=== PATIENT | male | born 1965 | race Caucasian/White ===

== ENCOUNTER 2018-09-13 14:45 | Inpatient (IN) | payer MEDICAID ==
[~2018-09-13] VITALS: Ht 177.8 cm; Wt 90.9 kg
[2018-09-13] MEDS ORDERED: SOD CHLORIDE 0.9% 1,000 ML IV STA (14:50)
[2018-09-13] MEDS ORDERED: TAMS0.4C2 PO (16:15)
[2018-09-13] MEDS ORDERED: LANT3I SC (16:16)
[2018-09-13] MEDS ORDERED: LEVETIRACETAM 1000 MG (PMX) 100 ML IVPB ONE (16:30)
[2018-09-13] MEDS ORDERED: ONDANSETRON 4 MG INJ IV STA (18:11)
[2018-09-13] MEDS ORDERED: LORAZEPAM 2 MG INJ IV PRN (18:30)
[2018-09-13] MEDS ORDERED: ACETAMINOPHEN 325 MG TAB PO PRN ×2 (18:30)
[2018-09-13] MEDS ORDERED: ONDANSETRON 4 MG INJ IV PRN ×2 (18:30)
[2018-09-13] MEDS ORDERED: NACL 0.9% 3 ML SYG IV SCH (18:30)
[2018-09-13] MEDS ORDERED: HYDROCODONE/APAP (5/325) TAB PO PRN (18:30)
[2018-09-13] MEDS ORDERED: morphine 2 MG INJ IV PRN (18:30)
[2018-09-13] MEDS ORDERED: DOCUSATE SODIUM 100 MG CAP PO PRN (18:30)
--- NOTE | 2018-09-13 18:33 | HP ---
Date/Time of Note Date/Time of Note DATE: 09/13/18 TIME: 18:25 Assessment/Plan VTE Prophylaxis Pharmacological prophylaxis: LMWH Lines/Catheters IV C[facility]ter Type [facility]from [facility] Saline Lock Assessment/Plan Hospital Course 1. Acute metabolic/toxic encephalopathy Exact etiology is unclear at this time, patient has no evidence of sepsis, toxicology is negative, CT head shows no acute findings No history of seizures, unclear if patient had a seizure today Lactic acid and ammonia in a.m. [facility] for seizure prophylaxis Monitor on telemetry No indication for antibiotics 2. History of hypoglycemic coma in [place] 2 months ago Exact story about the episode is not fully clear at this time 3. Diabetes Patient is on Lantus 40 units nightly, will decrease to 30 nightly and will add mealtime insulin Sliding scale Follow-up on A1c 4. BPH Continue home Flomax Prophylaxis: Lovenox Result Diagram: 09/13/18 1509 09/13/18 1509 Results 24hrs Laboratory Tests Test 09/13/18 15:09 09/13/18 15:12 09/13/18 15:29 09/13/18 16:15 White Blood Count 7.0 Red Blood Count 5.38 Hemoglobin 14.4 Hematocrit 46.3 Mean Corpuscular 86.1 Volume Mean Corpuscular 26.8 L Hemoglobin Mean Corpuscular 31.1 L Hemoglobin Concent Red Cell 13.8 Distribution Width Platelet Count 233 Mean Platelet Volume 10.5 H Immature 0.600 H Granulocytes % Neutrophils % 49.2 Lymphocytes % 43.7 Monocytes % 4.7 Eosinophils % 1.1 Basophils % 0.7 Nucleated Red Blood 0.0 Cells % Immature 0.040 H Granulocytes # Neutrophils # 3.5 Lymphocytes # 3.1 H Monocytes # 0.3 Eosinophils # 0.1 Basophils # 0.1 Nucleated Red Blood 0.0 Cells # Prothrombin Time 12.5 Prothrombin Time 1.0 Ratio INR International 0.92 Normalized Ratio Sodium Level 141 Potassium Level 4.0 Chloride Level 108 Carbon Dioxide Level 12 L Anion Gap 21 H Blood Urea Nitrogen 14 Creatinine 0.90 Est Glomerular > 60 Filtrat Rate mL/min Glucose Level 159 Calcium Level 9.1 Total Bilirubin 0.3 Direct Bilirubin 0.00 Indirect Bilirubin 0.3 Aspartate Amino 57 H Transf (AST/SGOT) Alanine 65 Aminotransferase (AL T/SGPT) Alkaline Phosphatase 115 Troponin I < 0.012 Total Protein 7.8 Albumin 4.8 Globulin 3.00 Albumin/Globulin 1.60 Ratio Salicylates Level < 1.0 L Acetaminophen Level < 10.0 L Ethyl Alcohol Level < 10.0 H POC Venous Lactate 10.0 *H Bedside Glucose 151 Urine Color YELLOW Urine Clarity CLEAR Urine pH 5.0 Urine Specific 1.016 [place] Urine Ketones TRACE A Urine Nitrite NEGATIVE Urine Bilirubin NEGATIVE Urine Urobilinogen NEGATIVE Urine Leukocyte NEGATIVE Esterase Urine Microscopic 11 H RBC Urine Microscopic 0 WBC Urine Hemoglobin 2+ H Urine Glucose NEGATIVE Urine Total Protein 1+ H Urine Opiates Screen Negative Urine Barbiturates Negative Urine Amphetamines Negative Screen Urine Negative Benzodiazepines Screen Urine Cocaine Screen Negative Urine Cannabinoids Negative Test 09/13/18 17:30 Lactic Acid Level 1.5 HPI/ROS Admit Date/Time Admit Date/Time September 13, 2018 Hx of Present Illness Patient is a 53-year-old male with a history of hypertension, dyslipidemia, BPH, type 2 diabetes with previous hypoglycemic coma in [place] 2 months ago. Patient was reportedly on a bus with his daughter when he became altered, according to EMS patient woke up after receiving Narcan, in the ER patient was still altered and reported nausea but mentation did begin to improve. Workup including labs, UA, toxicology screen, CT head and chest x-ray were all normal. Patient is able to provide history at this time but still lethargic. Patient denies any drug abuse or history of seizures. Patient has no witnessed seizures reported. Patient's main complaint at this time is nausea. ROS Constitutional: no complaints, improved Eyes: no complaints ENT: no complaints Respiratory: no complaints Cardiovascular: no complaints Gastrointestinal: nausea Genitourinary: no complaints Musculoskeletal: no complaints Skin: no complaints Neurologic: no complaints Endocrine: no complaints Lymphatic: no complaints Psychological: no complaints, nl mood/affect Immunologic: no complaints PMH/Family/Social Past Medical History As per HPI Medications Current Medications Ondansetron HCl (Zofran Inj) 4 mg ER BRIDGE PRN IV NAUSEA/VOMITING; Start 09/13/18 at 18:30; Stop 09/14/18 at 18:29 Acetaminophen (Tylenol Tab) 650 mg ER BRIDGE PRN PO .MILD PAIN 1-3 OR TEMP; Start 09/13/18 at 18:30; Stop 09/14/18 at 18:29 Coded Allergies: No Known Allergies (Verified Allergy, Unknown, 09/13/18) Family History Significant Family History: no pertinent family hx Social History Alcohol Use: occasionally Smoking Status: Never smoker Drug Use: none Exam/Review of Systems Vital Signs Vitals Vital Signs Date Temp Pulse Resp B/P (MAP) Pulse Ox O2 O2 Flow FiO2 Time Delivery Rate 09/13/18 Nasal 2 16:22 Cannula 09/13/18 97.4 104 18 137/83 95 14:54 (101) Exam Constitutional: alert Psych: confusion Respiratory: clear to auscultation Cardiovascular: regular rate and rhythm Gastrointestinal: soft; No distended Musculoskeletal: nl extremities to inspection ANMOL KAUFMAN Sep 13, 2018 18:33
--- NOTE | 2018-09-13 18:35 | ERD ---
ER Documentation Chief Complaint Chief Complaint PT BIB AMBULANCE, ALTERED, GLF, FACIAL TRAUMA, ORIENTED X1 HPI This is a 53-year-old male with a past medical history of diabetes, a reported episode of diabetic, and possible stroke while abroad in [place] who is presenting today with altered mental status. The patient was reportedly fine on the bus with his young daughter when he suddenly became unresponsive. The patient reportedly fell forward and did hit his nose and face. He had a transient episode of epistaxis. The exact details of the event are unclear, but there was no reported shaking event. An ambulance was called. The patient was very confused and very slow to respond when paramedics arrived. The patient was reportedly given Narcan with a slightly improved mentation and nausea. Paramedics were concerned about the possibility of narcotic use. That said, there is no paraphernalia around the patient or in the patient's belongings. The patient has no focal deficits. He moves everything without difficulty. History and physical is limited secondary to altered mentation. The patient's history was obtained by the patient's daughter and the patient's brother. ROS All systems reviewed and are negative except as per history of present illness. Medications Home Meds Reported Medications Insulin Glargine* (Lantus*) 100 Unit/Ml Soln, 40 UNIT SC QHS, #1 VIAL 09/13/18 Tamsulosin Hcl* (Tamsulosin Hcl*) 0.4 Mg Cap.er.24h, 0.4 MG PO HS, CAP 09/13/18 Allergies Allergies: Coded Allergies: No Known Allergies (Verified Allergy, Unknown, 09/13/18) PMhx/Soc History of Surgery: No Anesthesia Reaction: No Hx Neurological Disorder: Yes (Possible previous CVA) Hx Respiratory Disorders: No Hx Cardiac Disorders: Yes (Insulin-dependent diabetes, previous diabetic,) Hx Psychiatric Problems: No Hx Miscellaneous Medical Probl: No Hx Alcohol Use: Yes (Occasional) Hx Substance Use: No Hx Tobacco Use: No Smoking Status: Never smoker FmHx Family History: diabetes Physical Exam Vitals Vital Signs Date Temp Pulse Resp B/P (MAP) Pulse Ox O2 O2 Flow FiO2 Time Delivery Rate 09/13/18 Nasal 2 16:22 Cannula 09/13/18 97.4 104 18 137/83 95 14:54 (101) Physical Exam Const: No apparent distress, well-developed, well-nourished Head: Normocephalic. Atraumatic. No molina sign. Eyes: Normal Conjunctiva. Extraocular movements intact. Pupils equal, round and reactive to light. No raccoon eyes. ENT: Normal External Ears and Mouth. Dried blood in the nares. No septal hematoma. No hemotympanum. Neck: Full range of motion. No meningismus. Resp: Clear to auscultation bilaterally, No wheezes, rales or rhonchi Cardio: Regular rate and rhythm. No murmurs, rubs or gallops Abd: Soft, non tender, non distended. Normal bowel sounds Skin: No petechiae or rashes Back: No midline tenderness. No CVA tenderness Ext: No cyanosis, or edema Neur: Lethargic but arousable. Oriented x1 to person. No facial droop. No obvious focal deficits. Moves all extremities spontaneously and to pain. Result Diagram: 09/13/18 1509 09/13/18 1509 Results 24 hrs Laboratory Tests Test 09/13/18 15:09 09/13/18 15:12 09/13/18 15:29 09/13/18 16:15 White Blood Count 7.0 10^3/ul Red Blood Count 5.38 10^6/ul Hemoglobin 14.4 g/dl Hematocrit 46.3 % Mean Corpuscular 86.1 fl Volume Mean Corpuscular 26.8 pg Hemoglobin Mean Corpuscular 31.1 g/dl Hemoglobin Concen t Red Cell 13.8 % Distribution Width Platelet Count 233 10^3/UL Mean Platelet 10.5 fl Volume Immature 0.600 % Granulocytes % Neutrophils % 49.2 % Lymphocytes % 43.7 % Monocytes % 4.7 % Eosinophils % 1.1 % Basophils % 0.7 % Nucleated Red 0.0 /100WBC Blood Cells % Immature 0.040 10^3/ul Granulocytes # Neutrophils # 3.5 10^3/ul Lymphocytes # 3.1 10^3/ul Monocytes # 0.3 10^3/ul Eosinophils # 0.1 10^3/ul Basophils # 0.1 10^3/ul Nucleated Red 0.0 10^3/ul Blood Cells # Prothrombin Time 12.5 Sec Prothrombin Time 1.0 Ratio INR International 0.92 Normalized Ratio Sodium Level 141 mmol/L Potassium Level 4.0 mmol/L Chloride Level 108 mmol/L Carbon Dioxide 12 mmol/L Level Anion Gap 21 Blood Urea 14 mg/dl Nitrogen Creatinine 0.90 mg/dl Est Glomerular > 60 mL/min Filtrat Rate mL/min Glucose Level 159 mg/dl Calcium Level 9.1 mg/dl Total Bilirubin 0.3 mg/dl Direct Bilirubin 0.00 mg/dl Indirect 0.3 mg/dl Bilirubin Aspartate Amino 57 IU/L Transf (AST/SGOT) Alanine 65 IU/L Aminotransferase (ALT/SGPT) Alkaline 115 IU/L Phosphatase Troponin I < 0.012 ng/ml Total Protein 7.8 g/dl Albumin 4.8 g/dl Globulin 3.00 g/dl Albumin/Globulin 1.60 Ratio Salicylates Level < 1.0 mg/dl Acetaminophen < 10.0 ug/ml Level Ethyl Alcohol < 10.0 mg/dl Level POC Venous 10.0 mmol/L Lactate Bedside Glucose 151 mg/dL Urine Color YELLOW Urine Clarity CLEAR Urine pH 5.0 Urine Specific 1.016 [place] Urine Ketones TRACE mg/dL Urine Nitrite NEGATIVE mg/dL Urine Bilirubin NEGATIVE mg/dL Urine NEGATIVE mg/dL Urobilinogen Urine Leukocyte NEGATIVE [place]/ul Esterase Urine Microscopic 11 /HPF RBC Urine Microscopic 0 /HPF WBC Urine Hemoglobin 2+ mg/dL Urine Glucose NEGATIVE mg/dL Urine Total 1+ mg/dl Protein Urine Opiates Negative Screen Urine Negative Barbiturates Urine Negative Amphetamines Screen Urine Negative Benzodiazepines Screen Urine Cocaine Negative Screen Urine Negative Cannabinoids Test 09/13/18 17:30 Lactic Acid Level 1.5 mmol/L Current Medications Medications Dose Sig/Blanca Start Time Status Last (Trade) Ordered Route PRN Stop Time Admin Dose Reason Admin Sodium 1,000 ml @ Q1H STAT 09/13/18 DC 09/13/18 Chloride 1,000 mls/hr IV 14:50 15:39 09/13/18 15:49 100 ml @ ONCE ONCE 09/13/18 DC 09/13/18 Levetiracetam 400 mls/hr IVPB 16:30 16:43 09/13/18 16:44 Ondansetron 4 mg ONCE STAT 09/13/18 DC HCl (Zofran IV 18:11 Inj) 09/13/18 18:17 Procedures/MDM MDM The patient's presentation warrants further investigation. Previous medical records, if available, were reviewed. LABS The patient's laboratory testing was obtained and reviewed. No emergent treatment was required unless described below. CBC: No E/o systemic infection or severe anemia or thrombocytopenia Chemistry: No E/o severe alkalosis or renal failure or liver disease or diabetic ketoacidosis. Anion gap metabolic acidosis, likely related to the lactic acidosis that is present. PT/INR: No E/o significant coagulopathy Lactate: Elevated, which I suspect to be related to a seizure event. I do not believe the patient is septic. The patient's repeat lactic acid was normal at 1.5. Troponin: No E/o acute ischemia Urine: No E/o acute infection. + Hematuria, not emergent Tox: No E/o alcohol abuse. No E/o illicit drug use. No E/o salicylate or acetaminophen use. EKG EKG read by me: Rate/Rhythm: Regular rate and rhythm at a rate of 91 beats per minute Intervals: Normal [place]: Normal Impression: No evidence of acute ischemia or arrhythmia IMAGING Imaging and Radiology interpretation reviewed. CXR FINDINGS: The trachea is midline. The cardiac silhouette and pulmonary vascularity are within normal limits. The lungs are clear. The costophrenic angles are sharp. IMPRESSION: No evidence of acute cardiopulmonary disease. Electronically viewed and signed by Physician Mandi on 09/13/2018 15:47 CT Head FINDINGS: The posterior fossa structures are unremarkable. The hilda, midbrain, and medulla appear to be with normal limits. There is no evidence of acute intracranial hemorrhage, infarct, or extra-axial fluid collection. No gross mass effect or midline shift. Cerebral sulci, cisternal spaces, and ventricles are within normal limits. The visualized paranasal sinuses are clear. The mastoid air cells are well-aerated. The calvarium is unremarkable. IMPRESSION: No evidence of acute intracranial hemorrhage, infarct, or extra- axial fluid collection. Unremarkable CT brain. If clinical symptoms persist, recommend follow-up MRI of the brain. Electronically viewed and signed by Physician Mandi on 09/13/2018 15:47 TREATMENT/DISPOSITION The patient presents with altered mentation and an episode of unresponsiveness. Given the results of the patient's blood work, I have very high suspicion for a seizure episode. According to the patient's brother, he has not had seizures in the past, but he does have an unclear critical history while he was in [place] recently that may have included a stroke and diabetic coma for which he may have been intubated. There is certainly a possibility for cerebral ischemia at that time which could increase his risk of seizures now. The patient's symptoms appeared to improve with Narcan per the paramedics, and so there was initially concern for substance abuse. However, the patient's toxicologic report is unremarkable, and I have decreased suspicion for substance abuse at this time. I do not see any evidence of an infectious etiology. Despite the patient's elevated lactic acid, I do not believe the patient is septic, and I do not feel the patient requires a septic workup. The patient is hyperglycemic, but there is no evidence of DKA. I do not suspect diabetic, today. This is not require emergent treatment. The patient may benefit from neurology evaluation and possible MRI imaging. This decision will be deferred to the admitting team. The patient was treated with IV fluids and Keppra in the emergency department. The patient did present with his daughter. Social work was consulted for this. We are able to get a hold of the patient's brother who came to the emergency department. He will bring the child home to her mother. ADMISSION At this time, I feel that the patient requires admission for further evaluation and management. The patient will be admitted to panel in accordance with the patient's insurance. The patient was accepted by Dr. Guerrier at 5:31 PM on September 13, 2018. Disclaimer: Inadvertent spelling and grammatical errors are likely due to EHR/dictation software use and do not reflect on the overall quality of patient care. Note that the electronic time recorded on this note does not necessarily reflect the actual time of the patient encounter. Departure Diagnosis: Primary Impression: Seizure Additional Impressions: Post-ictal confusion Lactic acidosis Hematuria Hematuria type: unspecified type Qualified Codes: R31.9 - Hematuria, unspecified Hyperglycemia Transient alteration of awareness Condition: Serious LIBORIO TEMPLETON MD Sep 13, 2018 18:33
[2018-09-13] MEDS ORDERED: GLUCAGON 1 MG INJ IM PRN (19:00)
[2018-09-13] MEDS ORDERED: GLUCOSE GEL 15 GRAM TUBE PO PRN ×2 (19:00)
[2018-09-13] MEDS ORDERED: GLUCOSE GEL 15 GRAM TUBE BUCCAL PRN (19:00)
[2018-09-13] MEDS ORDERED: DEXTROSE 50% 50 ML SYRINGE IV PRN ×2 (19:00)
[2018-09-13] MEDS: LEVETIRACETAM 500 MG (PMX) 100 ML IVPB SCH (20:31)
[2018-09-13] MEDS: SOD CHLORIDE 0.9% 1,000 ML IV SCH ×2 (20:32→22:41)
[2018-09-13] MEDS: INSULIN GLARGINE [LANTus] (100 UNITS/ML) SYG SC SCH (20:41)
[2018-09-13] MEDS: INSULIN ASPART [NOVOLOG] 3 ML PEN SC SCH (20:53)
[2018-09-13 22:10] VITALS: BP 105/58; PULSE 79; RESP 17
[2018-09-13 22:56] VITALS: Ht 177.8 cm; Wt 90.9 kg
[2018-09-13 23:41] VITALS: BP 87/52; PULSE 69; PULSE 71; RESP 18
[2018-09-14] VITALS (13 sets, daily range): BP systolic 87–111; BP diastolic 47–62; PULSE 64–94; RESP 17–20
[2018-09-14] MEDS: ACCU-CHEK XX SCH (01:46)
[2018-09-14] MEDS: INSULIN ASPART [NOVOLOG] 3 ML PEN SC SCH ×8 (08:00→21:00)
[2018-09-14] MEDS: ENOXAPARIN 40 MG/0.4 ML SYG SC SCH (09:02)
[2018-09-14] MEDS: LEVETIRACETAM 500 MG (PMX) 100 ML IVPB SCH (09:05)
--- NOTE | 2018-09-14 11:40 | PN ---
Date/Time of Note Date/Time of Note DATE: 09/14/18 TIME: 11:30 Assessment/Plan VTE Prophylaxis Risk score (from Nsg)>0 risk: 3 Pharmacological prophylaxis: LMWH Lines/Catheters IV Catheter Type (from Nrsg): Saline Lock Urinary Cath still in place: No Assessment/Plan Hospital Course 1. Acute metabolic/toxic encephalopathy Exact etiology is unclear at this time, patient has no evidence of sepsis, toxicology is negative, ammonia is normal, CT head shows no acute findings No history of seizures, unclear if patient had a seizure Neurology consultation obtained. [place] for seizure prophylaxis Monitor on telemetry No indication for antibiotics 2. History of hypoglycemic coma in [place] 2 months ago Exact story about the episode is not fully clear at this time 3. Diabetes Patient is on Lantus 40 units nightly, have decreased basal and have added mealtime insulin Sliding scale A1c at 6.7 4. BPH Continue home Flomax Prophylaxis: Lovenox DC planning: Follow-up on neurology recommendations Result Diagram: 09/14/18 0546 09/14/18 0547 Results 24hrs Laboratory Tests Test 09/13/18 15:09 09/13/18 15:12 09/13/18 15:29 09/13/18 16:15 White Blood Count 7.0 Red Blood Count 5.38 Hemoglobin 14.4 Hematocrit 46.3 Mean Corpuscular 86.1 Volume Mean Corpuscular 26.8 L Hemoglobin Mean Corpuscular 31.1 L Hemoglobin Concent Red Cell 13.8 Distribution Width Platelet Count 233 Mean Platelet Volume 10.5 H Immature 0.600 H Granulocytes % Neutrophils % 49.2 Lymphocytes % 43.7 Monocytes % 4.7 Eosinophils % 1.1 Basophils % 0.7 Nucleated Red Blood 0.0 Cells % Immature 0.040 H Granulocytes # Neutrophils # 3.5 Lymphocytes # 3.1 H Monocytes # 0.3 Eosinophils # 0.1 Basophils # 0.1 Nucleated Red Blood 0.0 Cells # Prothrombin Time 12.5 Prothrombin Time 1.0 Ratio INR International 0.92 Normalized Ratio Sodium Level 141 Potassium Level 4.0 Chloride Level 108 Carbon Dioxide Level 12 L Anion Gap 21 H Blood Urea Nitrogen 14 Creatinine 0.90 Est Glomerular > 60 Filtrat Rate mL/min Glucose Level 159 Calcium Level 9.1 Total Bilirubin 0.3 Direct Bilirubin 0.00 Indirect Bilirubin 0.3 Aspartate Amino 57 H Transf (AST/SGOT) Alanine 65 Aminotransferase (AL T/SGPT) Alkaline Phosphatase 115 Troponin I < 0.012 Total Protein 7.8 Albumin 4.8 Globulin 3.00 Albumin/Globulin 1.60 Ratio Salicylates Level < 1.0 L Acetaminophen Level < 10.0 L Ethyl Alcohol Level < 10.0 H POC Venous Lactate 10.0 *H Bedside Glucose 151 Urine Color YELLOW Urine Clarity CLEAR Urine pH 5.0 Urine Specific 1.016 [place] Urine Ketones TRACE A Urine Nitrite NEGATIVE Urine Bilirubin NEGATIVE Urine Urobilinogen NEGATIVE Urine Leukocyte NEGATIVE Esterase Urine Microscopic 11 H RBC Urine Microscopic 0 WBC Urine Hemoglobin 2+ H Urine Glucose NEGATIVE Urine Total Protein 1+ H Urine Opiates Screen Negative Urine Barbiturates Negative Urine Amphetamines Negative Screen Urine Negative Benzodiazepines Screen Urine Cocaine Screen Negative Urine Cannabinoids Negative Test 09/13/18 17:30 09/13/18 18:15 09/13/18 20:35 09/13/18 22:15 Lactic Acid Level 1.5 1.9 Bedside Glucose 215 299 H Ammonia < 9 L Test 09/14/18 01:36 09/14/18 05:46 09/14/18 05:47 09/14/18 08:11 Bedside Glucose 242 H 113 White Blood Count 7.7 Red Blood Count 4.77 Hemoglobin 12.6 L Hematocrit 39.4 L Mean Corpuscular 82.6 Volume Mean Corpuscular 26.4 L Hemoglobin Mean Corpuscular 32.0 Hemoglobin Concent Red Cell 14.1 Distribution Width Platelet Count 203 Mean Platelet Volume 10.2 Immature 0.400 Granulocytes % Neutrophils % 65.6 Lymphocytes % 25.8 Monocytes % 7.5 Eosinophils % 0.3 Basophils % 0.4 Nucleated Red Blood 0.0 Cells % Immature 0.030 Granulocytes # Neutrophils # 5.1 Lymphocytes # 2.0 Monocytes # 0.6 Eosinophils # 0.0 Basophils # 0.0 Nucleated Red Blood 0.0 Cells # Hemoglobin A1c 6.7 H Sodium Level 140 Potassium Level 4.1 Chloride Level 110 Carbon Dioxide Level 22 # Anion Gap 8 # Blood Urea Nitrogen 12 Creatinine 0.72 Est Glomerular > 60 Filtrat Rate mL/min Glucose Level 152 Calcium Level 8.4 Phosphorus Level 3.3 Magnesium Level 2.0 Total Bilirubin 0.5 Direct Bilirubin 0.00 Indirect Bilirubin 0.5 Aspartate Amino 28 # Transf (AST/SGOT) Alanine 48 Aminotransferase (AL T/SGPT) Alkaline Phosphatase 76 Total Protein 5.4 #L Albumin 3.2 #L Globulin 2.20 Albumin/Globulin 1.45 Ratio Triglycerides Level 96 Cholesterol Level 161 LDL Cholesterol, 100 Calculated HDL Cholesterol 42 Cholesterol/HDL 3.8 Ratio Free Thyroxine Index 1.66 Thyroxine (T4) 4.8 L Triiodothyronine 34.5 (T3) Uptake Subjective 24 Hr Interval Summary Constitutional: no complaints Exam/Review of Systems Exam Vitals Vital Signs Date Temp Pulse Resp B/P (MAP) Pulse Ox O2 O2 Flow FiO2 Time Delivery Rate 09/14/18 98.2 71 19 99/55 (70) 96 11:25 09/14/18 Nasal 2.0 08:00 Cannula Intake and Output 09/13/18 09/13/18 09/14/18 1515:00 23:00 07:00 IntakeIntake Total 1030 ml OutputOutput Total 1000 ml BalanceBalance 30 ml Constitutional: alert, oriented Respiratory: clear to auscultation Cardiovascular: regular rate and rhythm Gastrointestinal: soft; No distended Musculoskeletal: nl extremities to inspection Results Results 24hrs Laboratory Tests Test 09/13/18 15:09 09/13/18 15:12 09/13/18 15:29 09/13/18 16:15 White Blood Count 7.0 Red Blood Count 5.38 Hemoglobin 14.4 Hematocrit 46.3 Mean Corpuscular 86.1 Volume Mean Corpuscular 26.8 L Hemoglobin Mean Corpuscular 31.1 L Hemoglobin Concent Red Cell 13.8 Distribution Width Platelet Count 233 Mean Platelet Volume 10.5 H Immature 0.600 H Granulocytes % Neutrophils % 49.2 Lymphocytes % 43.7 Monocytes % 4.7 Eosinophils % 1.1 Basophils % 0.7 Nucleated Red Blood 0.0 Cells % Immature 0.040 H Granulocytes # Neutrophils # 3.5 Lymphocytes # 3.1 H Monocytes # 0.3 Eosinophils # 0.1 Basophils # 0.1 Nucleated Red Blood 0.0 Cells # Prothrombin Time 12.5 Prothrombin Time 1.0 Ratio INR International 0.92 Normalized Ratio Sodium Level 141 Potassium Level 4.0 Chloride Level 108 Carbon Dioxide Level 12 L Anion Gap 21 H Blood Urea Nitrogen 14 Creatinine 0.90 Est Glomerular > 60 Filtrat Rate mL/min Glucose Level 159 Calcium Level 9.1 Total Bilirubin 0.3 Direct Bilirubin 0.00 Indirect Bilirubin 0.3 Aspartate Amino 57 H Transf (AST/SGOT) Alanine 65 Aminotransferase (AL T/SGPT) Alkaline Phosphatase 115 Troponin I < 0.012 Total Protein 7.8 Albumin 4.8 Globulin 3.00 Albumin/Globulin 1.60 Ratio Salicylates Level < 1.0 L Acetaminophen Level < 10.0 L Ethyl Alcohol Level < 10.0 H POC Venous Lactate 10.0 *H Bedside Glucose 151 Urine Color YELLOW Urine Clarity CLEAR Urine pH 5.0 Urine Specific 1.016 [place] Urine Ketones TRACE A Urine Nitrite NEGATIVE Urine Bilirubin NEGATIVE Urine Urobilinogen NEGATIVE Urine Leukocyte NEGATIVE Esterase Urine Microscopic 11 H RBC Urine Microscopic 0 WBC Urine Hemoglobin 2+ H Urine Glucose NEGATIVE Urine Total Protein 1+ H Urine Opiates Screen Negative Urine Barbiturates Negative Urine Amphetamines Negative Screen Urine Negative Benzodiazepines Screen Urine Cocaine Screen Negative Urine Cannabinoids Negative Test 09/13/18 17:30 09/13/18 18:15 09/13/18 20:35 09/13/18 22:15 Lactic Acid Level 1.5 1.9 Bedside Glucose 215 299 H Ammonia < 9 L Test 09/14/18 01:36 09/14/18 05:46 09/14/18 05:47 09/14/18 08:11 Bedside Glucose 242 H 113 White Blood Count 7.7 Red Blood Count 4.77 Hemoglobin 12.6 L Hematocrit 39.4 L Mean Corpuscular 82.6 Volume Mean Corpuscular 26.4 L Hemoglobin Mean Corpuscular 32.0 Hemoglobin Concent Red Cell 14.1 Distribution Width Platelet Count 203 Mean Platelet Volume 10.2 Immature 0.400 Granulocytes % Neutrophils % 65.6 Lymphocytes % 25.8 Monocytes % 7.5 Eosinophils % 0.3 Basophils % 0.4 Nucleated Red Blood 0.0 Cells % Immature 0.030 Granulocytes # Neutrophils # 5.1 Lymphocytes # 2.0 Monocytes # 0.6 Eosinophils # 0.0 Basophils # 0.0 Nucleated Red Blood 0.0 Cells # Hemoglobin A1c 6.7 H Sodium Level 140 Potassium Level 4.1 Chloride Level 110 Carbon Dioxide Level 22 # Anion Gap 8 # Blood Urea Nitrogen 12 Creatinine 0.72 Est Glomerular > 60 Filtrat Rate mL/min Glucose Level 152 Calcium Level 8.4 Phosphorus Level 3.3 Magnesium Level 2.0 Total Bilirubin 0.5 Direct Bilirubin 0.00 Indirect Bilirubin 0.5 Aspartate Amino 28 # Transf (AST/SGOT) Alanine 48 Aminotransferase (AL T/SGPT) Alkaline Phosphatase 76 Total Protein 5.4 #L Albumin 3.2 #L Globulin 2.20 Albumin/Globulin 1.45 Ratio Triglycerides Level 96 Cholesterol Level 161 LDL Cholesterol, 100 Calculated HDL Cholesterol 42 Cholesterol/HDL 3.8 Ratio Free Thyroxine Index 1.66 Thyroxine (T4) 4.8 L Triiodothyronine 34.5 (T3) Uptake Medications Medication Current Medications Sodium Chloride 1,000 ml @ 75 mls/hr [id number] IV Last administered on 09/13/18at 22:41; Admin Dose 75 MLS/HR; Start 09/13/18 at 18:26 IV Flush (NS 3 ml) 3 ml PER PROTOCOL IV ; Start 09/13/18 at 18:30 Ondansetron HCl (Zofran Inj) 4 mg Q6H PRN IV NAUSEA/VOMITING Last administered on 09/13/18at 22:35; Admin Dose 4 MG; Start 09/13/18 at 18:30 Acetaminophen (Tylenol Tab) 650 mg Q6H PRN PO .PAIN 1-3 OR TEMP; Start 09/13/18 at 18:30 Acetaminophen/ Hydrocodone Bitart ([place] (5/325)) 1 tab Q6H PRN PO .MOD PAIN 4- 6; Start 09/13/18 at 18:30 Morphine Sulfate (morphine) 2 mg Q4H PRN IV .SEVERE PAIN 7-10; Start 09/13/18 at 18:30 Docusate Sodium (Colace) 100 mg Q12H PRN PO .CONSTIPATION; Start 09/13/18 at 18:30 Enoxaparin Sodium (Lovenox) 40 mg DAILY SC Last administered on 09/14/18at 09:02; Admin Dose 40 MG; Start 09/14/18 at 09:00 Levetiracetam 100 ml @ 400 mls/hr Q12 IVPB Last administered on 09/14/18 09:05; Admin Dose 400 MLS/HR; Start 09/13/18 at 21:00 Lorazepam (Ativan) 1 mg Q10MIN PRN IV SEIZURES; Start 09/13/18 at 18:30 Diagnostic Test (Pha) (Accu-Chek) 1 ea 02 XX Last administered on 09/14/18at 01:46; Admin Dose 1 EA; Start 09/14/18 at 02:00 Insulin Glargine (Lantus) 23 units DAILY@1999 SC Last administered on 09/13/18at 20:41; Admin Dose 23 UNITS; Start 09/13/18 at 20:00 Insulin Aspart (Novolog Insulin Pen) 5 unit WITH MEALS SC Last administered on 09/14/18at 09:00; Admin Dose 5 UNIT; Start 09/14/18 at 08:00 Insulin Aspart (Novolog Insulin Pen) NOVOLOG *MILD* ALGORITHM WITH MEALS BEDTIME SC Last administered on 09/13/18at 20:53; Admin Dose 4 UNIT; Start 09/13/18 at 21:00 Miscellaneous Information 1 ea NOTE XX ; Start 09/13/18 at 19:00 Glucose (Glutose) 15 gm Q15M PRN PO DECREASED GLUCOSE; Start 09/13/18 at 19:00 Glucose (Glutose) 22.5 gm Q15M PRN PO DECREASED GLUCOSE; Start 09/13/18 at 19:00 Dextrose (D50w Syringe) 25 ml Q15M PRN IV DECREASED GLUCOSE; Start 09/13/18 at 19:00 Dextrose (D50w Syringe) 50 ml Q15M PRN IV DECREASED GLUCOSE; Start 09/13/18 at 19:00 Glucagon (Glucagen) 1 mg Q15M PRN IM DECREASED GLUCOSE; Start 09/13/18 at 19:00 Glucose (Glutose) 15 gm Q15M PRN BUCCAL DECREASED GLUCOSE; Start 09/13/18 at 19:00 ANMOL KAUFMAN Sep 14, 2018 11:40
--- NOTE | 2018-09-14 12:16 | CONS ---
Assessment/Plan Assessment/Plan Hospital Course 53 yo M with hx of CVA and other cerebrovascular risk factors who presents for evaluation following a transient loss of consciousness w/ ? generalized shaking?... for which neurology is consulted. The clinical picture is most concerning for seizure. Syncope is additionally considered. CTH is unrevealing. P: Clarify details of event w/ witness when able MRI brain without contrast for further characterization EEG to evaluate for epileptiform activity. Orthostatics Hold Keppra for now, pending the above Ativan IV PRN prolonged seizure or cluster Other medical management per primary Will follow clinically Consultation Date/Type/Reason Admit Date/Time September 13, 2018 Type of Consult Neurology Reason for Consultation ams Requesting Provider: ANMOL KAUFMAN Date/Time of Note DATE: 09/14/18 TIME: 12:16 Hx of Present Illness The pt is currently a limited historian. He endorses lethargy, some confusion, and a sore tongue. Denies headache, weakness, changes in vision or speech, paresthesias. Denies a hx of seizures It is additionally elsewhere noted: Hx of Present Illness Patient is a 53-year-old male with a history of hypertension, dyslipidemia, BPH, type 2 diabetes with previous hypoglycemic coma in [place] 2 months ago. Rory medley was reportedly on a bus with his daughter when he became altered, according to EMS patient woke up after receiving Narcan, in the ER patient was still altered and reported nausea but mentation did begin to improve. Workup including labs, UA, toxicology screen, CT head and chest x-ray were all normal. Patient is able to provide history at this time but still lethargic. Patient denies any drug abuse or history of seizures. Patient has no witnessed seizures reported. Patient's main complaint at this time is nausea. negative unless noted otherwise in HPI Exam/Review of Systems Exam Vitals Vital Signs Date Temp Pulse Resp B/P (MAP) Pulse Ox O2 O2 Flow FiO2 Time Delivery Rate 09/14/18 98.2 71 19 99/55 (70) 96 11:25 09/14/18 Nasal 2.0 08:00 Cannula Intake and Output 09/13/18 09/13/18 09/14/18 1515:00 23:00 07:00 IntakeIntake Total 1030 ml OutputOutput Total 1000 ml BalanceBalance 30 ml Exam PE: Gen Appearance: No Apparent Distress HEENT: Normocephalic Cardiovascular: Regular rate Lungs: Clear bilaterally Abdomen: Soft Extremities: Dry NE: The patient was alert and oriented. Language was dysarthric. Fund of knowledge was normal. Pupils were equal and reactive to light. There was no afferent pupillary defect. Visual mooney were normal. Funduscopic examination was limited. Extra-ocular movements were full. Ptosis was absent. There was no nystagmus. Facial sensation was normal. Face was symmetric with normal strength. Hearing was intact. Palate movements were normal. Neck strength was normal. There was normal tongue bulk with blue/purple bruising on the L side; there was normal speed of movement. Tone was normal. Muscle bulk was normal. I did not see fasciculations. Arms were strong; legs were strong to confrontation, though asymmetric and pain-limited in the L. Vibration sensation was normal. Temperature and pinprick sensation was normal. Rapid alternating movements were normal. There was no dysmetria. There was no intention tremor. Gait was unsteady, favoring the R leg. Arm and leg reflexes were 2+ and symmetric. Perez's sign was absent. Plantar responses were flexor. Results Result Diagram: 09/14/18 0546 09/14/18 0547 Results 24hrs Laboratory Tests Test 09/13/18 15:09 09/13/18 15:12 09/13/18 15:29 09/13/18 16:15 White Blood Count 7.0 Red Blood Count 5.38 Hemoglobin 14.4 Hematocrit 46.3 Mean Corpuscular 86.1 Volume Mean Corpuscular 26.8 L Hemoglobin Mean Corpuscular 31.1 L Hemoglobin Concent Red Cell 13.8 Distribution Width Platelet Count 233 Mean Platelet Volume 10.5 H Immature 0.600 H Granulocytes % Neutrophils % 49.2 Lymphocytes % 43.7 Monocytes % 4.7 Eosinophils % 1.1 Basophils % 0.7 Nucleated Red Blood 0.0 Cells % Immature 0.040 H Granulocytes # Neutrophils # 3.5 Lymphocytes # 3.1 H Monocytes # 0.3 Eosinophils # 0.1 Basophils # 0.1 Nucleated Red Blood 0.0 Cells # Prothrombin Time 12.5 Prothrombin Time 1.0 Ratio INR International 0.92 Normalized Ratio Sodium Level 141 Potassium Level 4.0 Chloride Level 108 Carbon Dioxide Level 12 L Anion Gap 21 H Blood Urea Nitrogen 14 Creatinine 0.90 Est Glomerular > 60 Filtrat Rate mL/min Glucose Level 159 Calcium Level 9.1 Total Bilirubin 0.3 Direct Bilirubin 0.00 Indirect Bilirubin 0.3 Aspartate Amino 57 H Transf (AST/SGOT) Alanine 65 Aminotransferase (AL T/SGPT) Alkaline Phosphatase 115 Troponin I < 0.012 Total Protein 7.8 Albumin 4.8 Globulin 3.00 Albumin/Globulin 1.60 Ratio Salicylates Level < 1.0 L Acetaminophen Level < 10.0 L Ethyl Alcohol Level < 10.0 H POC Venous Lactate 10.0 *H Bedside Glucose 151 Urine Color YELLOW Urine Clarity CLEAR Urine pH 5.0 Urine Specific 1.016 [place] Urine Ketones TRACE A Urine Nitrite NEGATIVE Urine Bilirubin NEGATIVE Urine Urobilinogen NEGATIVE Urine Leukocyte NEGATIVE Esterase Urine Microscopic 11 H RBC Urine Microscopic 0 WBC Urine Hemoglobin 2+ H Urine Glucose NEGATIVE Urine Total Protein 1+ H Urine Opiates Screen Negative Urine Barbiturates Negative Urine Amphetamines Negative Screen Urine Negative Benzodiazepines Screen Urine Cocaine Screen Negative Urine Cannabinoids Negative Test 09/13/18 17:30 09/13/18 18:15 09/13/18 20:35 09/13/18 22:15 Lactic Acid Level 1.5 1.9 Bedside Glucose 215 299 H Ammonia < 9 L Test 09/14/18 01:36 09/14/18 05:46 09/14/18 05:47 09/14/18 08:11 Bedside Glucose 242 H 113 White Blood Count 7.7 Red Blood Count 4.77 Hemoglobin 12.6 L Hematocrit 39.4 L Mean Corpuscular 82.6 Volume Mean Corpuscular 26.4 L Hemoglobin Mean Corpuscular 32.0 Hemoglobin Concent Red Cell 14.1 Distribution Width Platelet Count 203 Mean Platelet Volume 10.2 Immature 0.400 Granulocytes % Neutrophils % 65.6 Lymphocytes % 25.8 Monocytes % 7.5 Eosinophils % 0.3 Basophils % 0.4 Nucleated Red Blood 0.0 Cells % Immature 0.030 Granulocytes # Neutrophils # 5.1 Lymphocytes # 2.0 Monocytes # 0.6 Eosinophils # 0.0 Basophils # 0.0 Nucleated Red Blood 0.0 Cells # Hemoglobin A1c 6.7 H Sodium Level 140 Potassium Level 4.1 Chloride Level 110 Carbon Dioxide Level 22 # Anion Gap 8 # Blood Urea Nitrogen 12 Creatinine 0.72 Est Glomerular > 60 Filtrat Rate mL/min Glucose Level 152 Calcium Level 8.4 Phosphorus Level 3.3 Magnesium Level 2.0 Total Bilirubin 0.5 Direct Bilirubin 0.00 Indirect Bilirubin 0.5 Aspartate Amino 28 # Transf (AST/SGOT) Alanine 48 Aminotransferase (AL T/SGPT) Alkaline Phosphatase 76 Total Protein 5.4 #L Albumin 3.2 #L Globulin 2.20 Albumin/Globulin 1.45 Ratio Triglycerides Level 96 Cholesterol Level 161 LDL Cholesterol, 100 Calculated HDL Cholesterol 42 Cholesterol/HDL 3.8 Ratio Free Thyroxine Index 1.66 Thyroxine (T4) 4.8 L Triiodothyronine 34.5 (T3) Uptake Test 09/14/18 11:41 Bedside Glucose 134 Medications Medication Current Medications Sodium Chloride 1,000 ml @ 75 mls/hr [id number] IV Last administered on 09/13/18at 22:41; Admin Dose 75 MLS/HR; Start 09/13/18 at 18:26 IV Flush (NS 3 ml) 3 ml PER PROTOCOL IV ; Start 09/13/18 at 18:30 Ondansetron HCl (Zofran Inj) 4 mg Q6H PRN IV NAUSEA/VOMITING Last administered on 09/13/18at 22:35; Admin Dose 4 MG; Start 09/13/18 at 18:30 Acetaminophen (Tylenol Tab) 650 mg Q6H PRN PO .PAIN 1-3 OR TEMP; Start 09/13/18 at 18:30 Acetaminophen/ Hydrocodone Bitart ([place] (5/325)) 1 tab Q6H PRN PO .MOD PAIN 4- 6; Start 09/13/18 at 18:30 Morphine Sulfate (morphine) 2 mg Q4H PRN IV .SEVERE PAIN 7-10; Start 09/13/18 at 18:30 Docusate Sodium (Colace) 100 mg Q12H PRN PO .CONSTIPATION; Start 09/13/18 at 18:30 Enoxaparin Sodium (Lovenox) 40 mg DAILY SC Last administered on 09/14/18at 09:02; Admin Dose 40 MG; Start 09/14/18 at 09:00 Levetiracetam 100 ml @ 400 mls/hr Q12 IVPB Last administered on 09/14/18at 09:05; Admin Dose 400 MLS/HR; Start 09/13/18 at 21:00 Lorazepam (Ativan) 1 mg Q10MIN PRN IV SEIZURES; Start 09/13/18 at 18:30 Diagnostic Test (Pha) (Accu-Chek) 1 ea 02 XX Last administered on 09/14/18at 01:46; Admin Dose 1 EA; Start 09/14/18 at 02:00 Insulin Glargine (Lantus) 23 units DAILY@2000 SC Last administered on 09/13/18at 20:41; Admin Dose 23 UNITS; Start 09/13/18 at 20:00 Insulin Aspart (Novolog Insulin Pen) 5 unit WITH MEALS SC Last administered on 09/14/18at 11:56; Admin Dose 5 UNIT; Start 09/14/18 at 08:00 Insulin Aspart (Novolog Insulin Pen) NOVOLOG *MILD* ALGORITHM WITH MEALS BEDTIME SC Last administered on 09/13/18at 20:53; Admin Dose 4 UNIT; Start 09/13/18 at 21:00 Miscellaneous Information 1 ea NOTE XX ; Start 09/13/18 at 19:00 Glucose (Glutose) 15 gm Q15M PRN PO DECREASED GLUCOSE; Start 09/13/18 at 19:00 Glucose (Glutose) 22.5 gm Q15M PRN PO DECREASED GLUCOSE; Start 09/13/18 at 19:00 Dextrose (D50w Syringe) 25 ml Q15M PRN IV DECREASED GLUCOSE; Start 09/13/18 at 19:00 Dextrose (D50w Syringe) 50 ml Q15M PRN IV DECREASED GLUCOSE; Start 09/13/18 at 19:00 Glucagon (Glucagen) 1 mg Q15M PRN IM DECREASED GLUCOSE; Start 09/13/18 at 19:00 Glucose (Glutose) 15 gm Q15M PRN BUCCAL DECREASED GLUCOSE; Start 09/13/18 at 19:00 Past Medical History reviewed Home Meds Reported Medications Insulin Glargine* (Lantus*) 100 Unit/Ml Soln, 40 UNIT SC QHS, #1 VIAL 09/13/18 Tamsulosin Hcl* (Tamsulosin Hcl*) 0.4 Mg Cap.er.24h, 0.4 MG PO HS, CAP 09/13/18 Medications Current Medications Sodium Chloride 1,000 ml @ 75 mls/hr [id number] IV Last administered on 09/13/18at 22:41; Admin Dose 75 MLS/HR; Start 09/13/18 at 18:26 IV Flush (NS 3 ml) 3 ml PER PROTOCOL IV ; Start 09/13/18 at 18:30 Ondansetron HCl (Zofran Inj) 4 mg Q6H PRN IV NAUSEA/VOMITING Last administered on 09/13/18at 22:35; Admin Dose 4 MG; Start 09/13/18 at 18:30 Acetaminophen (Tylenol Tab) 650 mg Q6H PRN PO .PAIN 1-3 OR TEMP; Start 09/13/18 at 18:30 Acetaminophen/ Hydrocodone Bitart ([place] (5/325)) 1 tab Q6H PRN PO .MOD PAIN 4- 6; Start 09/13/18 at 18:30 Morphine Sulfate (morphine) 2 mg Q4H PRN IV .SEVERE PAIN 7-10; Start 09/13/18 at 18:30 Docusate Sodium (Colace) 100 mg Q12H PRN PO .CONSTIPATION; Start 09/13/18 at 18:30 Enoxaparin Sodium (Lovenox) 40 mg DAILY SC Last administered on 09/14/18at 09:02; Admin Dose 40 MG; Start 09/14/18 at 09:00 Levetiracetam 100 ml @ 400 mls/hr Q12 IVPB Last administered on 09/14/18at 09:05; Admin Dose 400 MLS/HR; Start 09/13/18 at 21:00 Lorazepam (Ativan) 1 mg Q10MIN PRN IV SEIZURES; Start 09/13/18 at 18:30 Diagnostic Test (Pha) (Accu-Chek) 1 ea 02 XX Last administered on 09/14/18at 01:46; Admin Dose 1 EA; Start 09/14/18 at 02:00 Insulin Glargine (Lantus) 23 units DAILY@2000 SC Last administered on 09/13/18at 20:41; Admin Dose 23 UNITS; Start 09/13/18 at 20:00 Insulin Aspart (Novolog Insulin Pen) 5 unit WITH MEALS SC Last administered on 09/14/18at 11:56; Admin Dose 5 UNIT; Start 09/14/18 at 08:00 Insulin Aspart (Novolog Insulin Pen) NOVOLOG *MILD* ALGORITHM WITH MEALS BEDTIME SC Last administered on 09/13/18at 20:53; Admin Dose 4 UNIT; Start 09/13/18 at 21:00 Miscellaneous Information 1 ea NOTE XX ; Start 09/13/18 at 19:00 Glucose (Glutose) 15 gm Q15M PRN PO DECREASED GLUCOSE; Start 09/13/18 at 19:00 Glucose (Glutose) 22.5 gm Q15M PRN PO DECREASED GLUCOSE; Start 09/13/18 at 19:00 Dextrose (D50w Syringe) 25 ml Q15M PRN IV DECREASED GLUCOSE; Start 09/13/18 at 19:00 Dextrose (D50w Syringe) 50 ml Q15M PRN IV DECREASED GLUCOSE; Start 09/13/18 at 19:00 Glucagon (Glucagen) 1 mg Q15M PRN IM DECREASED GLUCOSE; Start 09/13/18 at 19:00 Glucose (Glutose) 15 gm Q15M PRN BUCCAL DECREASED GLUCOSE; Start 09/13/18 at 19:00 Allergies: Coded Allergies: No Known Allergies (Verified Allergy, Unknown, 09/13/18) Past Surgical History reviewed Social History reviewed Alcohol Use: occasionally Smoking Status: Never smoker Drug Use: none REID MAURICIO NP Sep 14, 2018 12:16 GRACE ARAUJO Sep 14, 2018 15:28
[2018-09-14] MEDS: SOD CHLORIDE 0.9% 1,000 ML IV SCH ×2 (14:47→21:06)
[2018-09-14] MEDS: INSULIN GLARGINE [LANTus] (100 UNITS/ML) SYG SC SCH (20:00)
[2018-09-15] VITALS (9 sets, daily range): BP systolic 99–117; BP diastolic 57–70; PULSE 59–71; RESP 17–20
[2018-09-15] MEDS: ACCU-CHEK XX SCH (02:00)
--- NOTE | 2018-09-15 07:08 | EEG ---
EEG NOTE Report Details DATE OF TEST: 09/14/18 HISTORY: The patient is a 53-year-old M who presents following a transient loss of consciousness. This EEG is requested to evaluate for an epileptic disorder. SEDATION: None. CONDITIONS OF RECORDING: This EEG was recorded digitally on the [employer] machine, using the International 10-20 System of electrodes plus anterior temporals and [place]. STATES SAMPLED: Wakefulness and drowsiness. FINDINGS: During wakefulness, there is a 9 Hz posterior dominant rhythm, which attenuates normally with eye opening. There is a normal [id number] frequency-amplitude gradient. The remainder of the awake background is normal. Photic stimulation does not elicit any definite driving responses or epileptiform discharges. Hyperventilation, performed with good effort, produces a negligible change in the background. The patient became drowsy but did not pass into sleep. No asymmetries, focal abnormalities or epileptiform discharges were seen. IMPRESSION: Normal electroencephalogram during wakefulness and drowsiness. GRACE ARAUJO Sep 15, 2018 07:08
[2018-09-15] MEDS: INSULIN ASPART [NOVOLOG] 3 ML PEN SC SCH ×6 (08:00→17:10)
[2018-09-15] MEDS: ENOXAPARIN 40 MG/0.4 ML SYG SC SCH (08:20)
--- NOTE | 2018-09-15 08:53 | PDOCDIS ---
Discharge Instructions CONDITION [id number] Patient Condition: [id number] Good HOME CARE INSTRUCTIONS: [id number] Special Diet: [id number] DIABETIC ACTIVITY: [id number] Activity Restrictions: [id number] No Restrictions FOLLOW UP/APPOINTMENTS Follow-up Plan FOLLOW UP WITH YOUR PCP IN 1-2 WEEKS ANMOL KAUFMAN Sep 15, 2018 08:53
--- NOTE | 2018-09-15 09:19 | CONS ---
Assessment/Plan Assessment/Plan Hospital Course 53 yo M with reported hx of CVA and other cerebrovascular risk factors who presents for evaluation following a transient loss of consciousness w/ ? generalized shaking?... for which neurology is consulted. The clinical picture is most concerning for 1st seizure vs. syncope MRI brain is unrevealing. EEG is normal. Orthostatics neg P: AED Tx not presently indicated Ativan iv prn prolonged seizure or cluster Continued medical management per primary Will follow clinically Consultation Date/Type/Reason Admit Date/Time Sep 13, 2018 at 18:19 Type of Consult Neurology Reason for Consultation ams Requesting Provider: ANMOL KAUFMAN Date/Time of Note DATE: 09/15/18 TIME: 09:19 24 HR Interval Summary Free Text/Dictation Continues acute care. Exam Vital Signs Vitals Vital Signs Date Temp Pulse Resp B/P (MAP) Pulse Ox O2 O2 Flow FiO2 Time Delivery Rate 09/15/18 98.0 62 20 116/63 93 07:30 (80) 09/14/18 20:15 Intake and Output 09/14/18 09/14/18 09/15/18 1515:00 23:00 07:00 IntakeIntake Total 100 ml 1750 ml 1350 ml OutputOutput Total 795 ml BalanceBalance 100 ml 1750 ml 555 ml Exam PE: Gen Appearance: No Apparent Distress HEENT: Normocephalic Cardiovascular: Regular rate Lungs: Clear bilaterally Abdomen: Soft Extremities: Dry NE: The patient was alert and oriented. Language was dysarthric. Fund of knowledge was normal. Pupils were equal and reactive to light. There was no afferent pupillary defect. Visual mooney were normal. Funduscopic examination was limited. Extra-ocular movements were full. Ptosis was absent. There was no nystagmus. Facial sensation was normal. Face was symmetric with normal strength. Hearing was intact. Palate movements were normal. Neck strength was normal. There was normal tongue bulk with blue/purple bruising on the L side; there was normal speed of movement. Tone was normal. Muscle bulk was normal. I did not see fasciculations. Arms were strong; legs were strong to confrontation, though asymmetric and pain-limited in the L. Vibration sensation was normal. Temperature and pinprick sensation was normal. Rapid alternating movements were normal. There was no dysmetria. There was no intention tremor. Gait was unsteady, favoring the R leg. Arm and leg reflexes were 2+ and symmetric. Perez's sign was absent. Plantar responses were flexor. REID MAURICIO NP Sep 15, 2018 09:19 GRACE ARAUJO Sep 15, 2018 12:52
[2018-09-15] MEDS: SOD CHLORIDE 0.9% 1,000 ML IV SCH (10:26)
--- NOTE | 2018-09-15 10:55 | DS ---
Date/Time of Note Date/Time of Note DATE: 09/15/18 TIME: 10:52 Discharge Summary Admission/Discharge Info Admit Date/Time Sep 13, 2018 at 18:19 Discharge Date/Time September 15, 2018 Discharge Diagnosis 1. Acute metabolic/toxic encephalopathy-resolved Exact etiology unclear at this time, patient has no evidence of sepsis, toxicology is negative, ammonia is normal, CT head, MRI and EEG show no significant findings No history of seizures, it does not appear that patient had a seizure, EEG is normal Neurology consultation appreciated No indication for seizure medications upon DC No indication for antibiotics 2. History of hypoglycemic coma in [place] 2 months ago with reported stroke Patient has no evidence of stroke or significant damage to the brain as MRI shows no acute or chronic findings, patient was reassured that MRI showed no evidence of brain damage or stroke 3. Diabetes Continue home regimen A1c at 6.7 4. BPH Continue home Flomax Patient Condition: Good Hospital Course Patient is a 53-year-old male with a history of hypertension, dyslipidemia, BPH, type 2 diabetes with previous hypoglycemic coma in [place] 2 months ago. Patient was reportedly on a bus with his daughter when he became altered, according to EMS patient woke up after receiving Narcan, in the ER patient was still altered and reported nausea but mentation did begin to improve. Patient had extensive workup which revealed no etiology for his acute encephalopathy. Patient was seen by neurology, MRI and EEG showed no significant findings. Patient mentation did normalize and patient was stable for DC, on the day of discharge patient's vitals, labs of exam are stable. Home Meds Reported Medications Insulin Glargine* (Lantus*) 100 Unit/Ml Soln, 40 UNIT SC QHS, #1 VIAL 09/13/18 Tamsulosin Hcl* (Tamsulosin Hcl*) 0.4 Mg Cap.er.24h, 0.4 MG PO HS, CAP 09/13/18 Follow-up Plan FOLLOW UP WITH YOUR PCP IN 1-2 WEEKS Primary Care Provider Care Physician No Primary Time spent on discharge: > 30 minutes Pending Labs Laboratory Tests Test 09/14/18 11:41 09/14/18 16:57 09/14/18 20:57 09/15/18 08:13 Bedside 134 188 120 85 Glucose mg/dL (70-220) mg/dL (70-220) mg/dL (70-220) mg/dL (70-220) ANMOL KAUFMAN Sep 15, 2018 10:55
== END 2018-09-15 18:43 | disposition home or self-care (01) | DRG 93 ==
LOC: E/R 14:45 → 6WM 18:19
PROVIDERS: ADMIT Internal Medicine; ATTEND Internal Medicine
DX: G92 Toxic encephalopathy (principal); R56.9 Unspecified convulsions; R31.9 Hematuria, unspecified; N40.0 Benign prostatic hyperplasia without lower urinary tract symptoms; E11.649 Type 2 diabetes mellitus with hypoglycemia without coma; Z86.73 Personal history of transient ischemic attack (TIA), and cerebral infarction without residual deficits
CPT/HCPCS: 36415; 70450; 70551; 71045; 80053; 80061; 80307; 81001; 82140; 82962; 83036; 83605; 83735; 84100; 84436; 84479; 84484; 85025; 85610; 93005; 95819; 96374; 97161; J1650; J1815; J1953; J2405; J7030